=== PATIENT | male | born 1980 | race Caucasian/White ===

== ENCOUNTER 2017-09-14 11:07 | Emergency (ER) | payer BC ==
[~2017-09-14] VITALS: Ht 180.3 cm; Wt 84.1 kg
[2017-09-14] MEDS ORDERED: SODIUM CHLOR 0.9% 1000 ML INJ 1,000 ML IV SCH (11:21)
--- NOTE | 2017-09-14 11:21 | PD ---
HPI Chief Complaint: allergic reaction Time Seen by Provider: 11:17 Travel History International Travel<30 days: No Contact w/Intl Traveler<30days: No History of Present Illness HPI 37-year-old male with PMH of HLD, CAD s/p stenting presents to the ED via EMS for evaluation of facial swelling, scratchy throat, wheezing, patchy erythema of the skin. Onset approximately 10 minutes after he took his morning medications of prednisone, ibuprofen and Lipitor. Patient states that he has been taking Lipitor since the age of 18 and prednisone for 4 days. He thinks this is the first time he has taken the medications concurrently. On presentation he denies chest pain, palpitations, shortness of breath, close throat feeling, difficulty swallowing his own secretions. States he's never had a reaction like this in the past. He is taking the prednisone secondary to back pain after golfing with friends a few days ago. He was prescribed this medication through tele-health from his health insurance company. He does not take blood thinners.He is visiting from [place]. [facility] Social History Tobacco Use: No Allergies-Medications (Allergen,Severity, Reaction): Coded Allergies: No Known Allergies (Unverified , 09/14/17) Reported Meds & Prescriptions Reported Meds & Active Scripts Active Reported Methylprednisolone Dosepak (Methylprednisolone) 4 Dspk 4 Mg PO DIRECTED Per Pharmacist Direction Lipitor (Atorvastatin Calcium) 20 Mg Tab 20 Mg PO HS Aspirin 81 Mg Chew 81 Mg CHEW DAILY Review of Systems Except as stated in HPI: all other systems reviewed are Neg Physical Exam Narrative GENERAL: Well-nourished, well-developed white male in no acute distress. Speaking in full sentences. SKIN: Focused skin assessment warm/dry. Sunburn of the chest and face noted. HEAD: Normocephalic. EYES: No scleral icterus. No injection or drainage. PERRLA. EOMI. ENT: Oropharynx without erythema, edema, exudate. Uvula midline. Airway patent. Floor the mouth is soft. NECK: Supple, trachea midline. No JVD or lymphadenopathy. CARDIOVASCULAR: Regular rate and rhythm without murmurs, gallops, or rubs. RESPIRATORY: Breath sounds clear and equal bilaterally. No accessory muscle use. GASTROINTESTINAL: Abdomen soft, non-tender, nondistended. MUSCULOSKELETAL: No cyanosis, or edema. BACK: Nontender without obvious deformity. No CVA tenderness. Data Data Last Documented VS Vital Signs Date Time Temp Pulse Resp B/P (MAP) Pulse Ox O2 Delivery O2 Flow Rate FiO2 09/14/17 13:44 70 16 117/70 (86) 98 Room Air 09/14/17 11:22 98.4 Orders Orders Iv Access Insert/Monitor (09/14/17 11:21) Ecg Monitoring (09/14/17 11:21) Oximetry (09/14/17 11:21) Sodium Chlor 0.9% 1000 Ml Inj (Ns 1000 M (09/14/17 11:21) Sodium Chloride 0.9% Flush (Ns Flush) (09/14/17 11:30) Ed Discharge Order (09/14/17 13:32) MDM Medical Decision Making Medical Screen Exam Complete: Yes Emergency Medical Condition: Yes Differential Diagnosis Allergic reaction versus medication side effect versus angioedema versus other Narrative Course 37-year-old male with PMH of HLD, CAD s/p stenting presents to the ED via EMS for evaluation of facial swelling, scratchy throat, wheezing, patchy erythema of the skin. Onset approximately 10 minutes after he took his morning medications of prednisone, ibuprofen and Lipitor. Patient states that he has been taking Lipitor since the age of 18 and prednisone for 4 days. He thinks this is the first time he has taken the medications concurrently. Per EMS report he was administered 2 mg Benadryl by mouth by friends on scene. EMS administered 0.3 mg epinephrine in route. On arrival patient states that he is asymptomatic. Vitals reviewed. On physical exam there is no facial edema, no oropharyngeal edema or compromise of the airway. Lung sounds are clear bilaterally. Patient was administered a liter of normal saline. He was monitored in the ED for 2 hours. Physical exam remains reassuring on recheck. He is instructed to avoid taking these medications in combination, follow with his primary care provider. We discussed reasons to return to the ED. The patient indicated understanding of the instructions and is agreeable with the care plan. The patient is stable and discharged home. Diagnosis Primary Impression: Adverse drug interaction with prescription medication Referrals: Primary Care Physician Patient Instructions: Adverse Drug Reaction (ED), General Instructions Additional Instructions: Rest, hydrate. Return to normal, gentle activities as tolerated. Avoid taking medications in combination. Follow-up with your primary care provider. Return to the ED for worsening symptoms or any urgent or emergent medical condition. Disposition: DISCHARGE HOME Condition: Stable Annalee Garber Sep 14, 2017 11:21
[2017-09-14 11:22] VITALS: BP 131/71; PULSE 71; RESP 16; TEMP 98.4; O2SAT 100
[2017-09-14] MEDS ORDERED: METH4PAK PO (11:22)
[2017-09-14] MEDS ORDERED: ASPI-516 CHEW (11:22)
[2017-09-14] MEDS ORDERED: LIPI20TA PO (11:22)
[2017-09-14 11:27] VITALS: BP 131/71; PULSE 71; RESP 16; O2SAT 100
[2017-09-14] MEDS ORDERED: SODIUM CHLORIDE 0.9% FLUSH 10 ML FLUSH IV FLUSH PRN (11:30)
[2017-09-14 13:44] VITALS: BP 117/70; PULSE 70; RESP 16; O2SAT 98
== END 2017-09-14 13:45 | disposition home or self-care (01) ==
LOC: NEPE 11:07
DX: T38.0X1A Poisoning by glucocorticoids and synthetic analogues, accidental (unintentional), initial encounter (principal); I25.10 Atherosclerotic heart disease of native coronary artery without angina pectoris; Z95.5 Presence of coronary angioplasty implant and graft; Z79.899 Other long term (current) drug therapy; Z79.82 Long term (current) use of aspirin
CPT/HCPCS: 99282; J7030